=== PATIENT | male | born 1960 | race Asian ===

== ENCOUNTER 2017-08-02 19:21 | Emergency (ER) | payer BC ==
[~2017-08-02] VITALS: Ht 170.2 cm; Wt 68.0 kg
[2017-08-02 21:24] VITALS: BP 111/72
== END 2017-08-02 21:25 | disposition home or self-care (01) ==
LOC: ER 19:21
DX: H57.8 Other specified disorders of eye and adnexa (principal); Z90.89 Acquired absence of other organs